=== PATIENT | male | born 1960 | race Caucasian/White ===

== ENCOUNTER 2017-05-10 21:40 | Inpatient (IN) | payer BC ==
[2017-05-10 21:45] VITALS: BMI 32.5
[2017-05-10 22:40] LABS: BASOPHIL 0.3 % (0-2.0); EOSINOPHIL 0.2 % (0-4.5); MCH 30.5 pg (25.7-33.7); MCHC 34.1 g/dl (32.0-35.9); MEAN CELL VOLUME 89.6 fl (80-96); MEAN PLT VOLUME 6.9 fl (7.5-11.1); NEUTROPHILS 70.7 % (42.8-82.8); PLATELET COUNT 219 K/MM3 (134-434); RDW 14.2 % (11.9-15.9); WHITE BLOOD COUNT 9.2 K/mm3 (4.0-10.0)
[2017-05-10 23:02] LABS: ALBUMIN 4.2 g/dl (3.4-5.0); CALCIUM 8.8 mg/dL (8.5-10.1); CREATININE 1.6 mg/dL (0.7-1.3)
[2017-05-10 23:03] LABS: BILIRUBIN,TOTAL 0.8 mg/dL (0.2-1.0)
[2017-05-10] MEDS ORDERED: SODIUM CHLORIDE 1,000 ML IV STA (23:26)
[2017-05-10] MEDS ORDERED: ONDANSETRON 4 MG/2 ML VIAL IVPB ONE (23:26)
[2017-05-10] MEDS ORDERED: ONDANSETRON 4 MG/2 ML VIAL ONE (23:33)
[2017-05-11] MEDS ORDERED: METOCLOPRAMIDE HCL INJECTION 10 MG/2 ML VIAL ONE (00:35)
[2017-05-11] MEDS ORDERED: METOCLOPRAMIDE HCL INJECTION 10 MG/2 ML VIAL IVPB ONE (00:47)
[2017-05-11] MEDS ORDERED: LORAZEPAM CARPU-JECT 2 MG/ML DISP.SYRIN IVPUSH ONE ×2 (01:50→13:18)
[2017-05-11] MEDS ORDERED: SODIUM CHLORIDE 1,000 ML IV STA (01:51)
[2017-05-11] MEDS ORDERED: LORAZEPAM CARPU-JECT 2 MG/ML DISP.SYRIN ONE (01:57)
[2017-05-11 02:09] LABS: ARTERIAL BLD GAS O2 SATURATION 99.6 % (90-98.9); ARTERIAL BLOOD GAS HCO3 20.5 meq/L (22-26)
[2017-05-11 02:10] LABS: ALLENS TEST POSITIVE; ART PUNCT SITE RIGHT RADIAL; LPM/O2% 21%; METHEMOGLOBIN 2.4 % (0.4-1.5); PT. ON O2? NO; TYPE OF O2 ROOM AIR
--- NOTE | 2017-05-11 02:25 | PDOC ---
History of Present Illness - General Chief Complaint: Alcohol intoxication Stated Complaint: ALCOHOL INTOXICATION Time Seen by Provider: 05/10/17 21:59 History Source: Patient, Family Exam Limitations: Clinical Condition - History of Present Illness Initial Comments: 05/11/17 02:42 56yo Male patient w/ PmHx: Alcoholism, and depression presents to ED c/o nausea. Patient states he is an alcoholic and he drank 1/2 pint of Vodka around noon. He reports feeling nauseous and anxious. Patient denies CP, Abd pain, Back pain, diff breathing, fever, or any other complaints. Timing/Duration: 4-6 hours Severity: moderate Associated Symptoms: reports: nausea/vomiting. denies: denies symptoms, chest pain, cough, diaphoresis, fever/chills, headaches, loss of appetite, malaise, rash, seizure, shortness of breath, syncope, weakness, other Aspirin Received prior to arrival: No: no aspirin today, unknown, 81 mg x 1, 81 mg x 2, 81 mg x 3, 81 mg x 4, 325 mg x 1, provided at home, provided by EMS, provided by ED [facility] Contraindications(Core Measure): No: Allergy, Other, Active Blding w/i 24 hrs., Plavix, Receiving Warfarin Beta April Contraindications(Core Measure): No: Not Prescribed, Allergy, Bradycardia (HR <60bpm), Advanced Heart Block, Pacemaker, Other Beta April Given by EMS(Core Measure): No Beta April Taken at Home(Core Measure): No Beta April Not Indicated at this Time(Core Measure): No Past History - Travel Traveled outside of the country in the last 30 days: No Close contact w/someone who was outside of country & ill: No - Past Medical History Allergies/Adverse Reactions: Allergies Allergy/AdvReac Type Severity Reaction Status Date / Time No Known Allergies Allergy Verified 05/10/17 21:45 Home Medications: Ambulatory Orders Venlafaxine HCl ER [Effexor Xr -] 150 mg PO DAILY 10/26/15 Bupropion HCl [Wellbutrin Xl -] 300 mg PO DAILY #30 tab.sr.24h 10/27/15 Anemia: No Asthma: No Cancer: No Cardiac Disorders: No CVA: No COPD: No CHF: No Dementia: No Diabetes: No GI Disorders: No Disorders: No HTN: No Hypercholesterolemia: No Kidney Stones: No Liver Disease: No Suicide Attempt (Hx): No (denies) Seizures: No Thyroid Disease: No - Reproductive History Testicular Surgery: No - Psycho/Social/Smoking Cessation Hx Anxiety: Yes Suicidal Ideation: No Smoking History: Never smoked Have you smoked in the past 12 months: No If you are a former smoker, when did you quit?: 2009 Hx Alcohol Use: Yes Substance Use Type: Alcohol Hx Substance Use Treatment: No Review of Systems - Review of Systems Able to Perform ROS?: Yes Is the patient limited Iraqi proficient: No Constitutional: No: Chills, Fever Cardiac (ROS): No: Chest Pain, Lightheadedness, Palpitations, Syncope, Chest Tightness ABD/GI: Yes: Nausea. No: Diarrhea, Poor Appetite, Poor Fluid Intake, Vomiting, Abdominal cramping : No: Burning, Dysuria, Hematuria, Urgency Musculoskeletal: No: Back Pain Integumentary: Yes: Sweating. No: Bruising, Dryness, Erythema, Rash Neurological: No: Headache, Seizure Psychiatric: Yes: Anxiety All Other Systems: Reviewed and Negative *Physical Exam - Vital Signs Last Vital Signs Temp Pulse Resp BP Pulse Ox 123 H 24 131/85 100 05/10/17 21:44 05/10/17 21:44 05/10/17 21:44 05/10/17 21:44 - Physical Exam General Appearance: Yes: Nourished, Appropriately Dressed, Moderate Distress. No: Apparent Distress, Mild Distress, Severe Distress Neck: positive: Trachea midline, Supple. negative: Stridor, Lymphadenopathy (R) , Lymphadenopathy (L) Respiratory/Chest: positive: Lungs Clear, Normal Breath Sounds. negative: Chest Tender, Respiratory Distress, Accessory Muscle Use, Labored Respiration, Rapid RR, Stridor, Wheezing Cardiovascular: positive: Regular Rhythm, Regular Rate Gastrointestinal/Abdominal: positive: Normal Bowel Sounds, Soft, Distended. negative: Protuberent, Guarding, Rebound, Tenderness Musculoskeletal: positive: Normal Inspection. negative: CVA Tenderness, Vertebral Tenderness Extremity: positive: Normal Capillary Refill, Normal Inspection, Normal Range of Motion. negative: Pedal Edema, Swelling, Calf Tenderness, Erythema, Inflammation Integumentary: positive: Normal Color, Dry, Warm, Diaphoresis. negative: Rash, Swelling, Bruising Neurologic: positive: pediatric geneticist II-XII NML intact, Fully Oriented, Alert, Normal Mood/ Affect, Normal Response, Motor Strength 5/5 Heart Score/ECG Review - ECG Impressions Normal ECG: No Non-specific ST Elevation: No Ischemic Changes: No Bradycardia: No Tachycardia: Sinus Torsades van Pointes: No WPW: No ED Treatment Course - LABORATORY CBC & Chemistry Diagram: 05/10/17 22:24 05/10/17 22:24 - ADDITIONAL ORDERS Additional order review: Laboratory Results 05/11/17 05/10/17 05/10/17 02:00 22:24 22:24 Puncture Site Right radial ABG pH 7.60 H ABG pCO2 at Pt Temp 20.6 L ABG pO2 at Pt Temp 122.0 H ABG HCO3 20.5 L ABG O2 Sat (Measured) 99.6 H* ABG O2 Content 19.8 ABG Base Excess 1.0 Kg Test Positive Carboxyhemoglobin 2.4 H Methemoglobin 2.4 H O2 Delivery Device Room air Oxygen Flow Rate 21% Sodium 143 Potassium 3.7 Chloride 103 Carbon Dioxide 25 Anion Gap 15 BUN 16 D Creatinine 1.6 H D Creat Clearance w eGFR 44.78 Random Glucose 140 H Calcium 8.8 Total Bilirubin 0.8 D AST 32 D ALT 33 Alkaline Phosphatase 64 Total Protein 7.0 Albumin 4.2 Alcohol, Quantitative < 5.0 05/10/17 22:24 RBC 4.84 MCV 89.6 MCHC 34.1 RDW 14.2 MPV 6.9 L D Neutrophils % 70.7 Lymphocytes % 20.2 Monocytes % 8.6 Eosinophils % 0.2 Basophils % 0.3 - RADIOLOGY Radiology Studies Ordered: Category Date Time Status CHEST X-RAY PORTABLE* [RAD] Stat Radiology 05/11/17 01:50 Taken - Medications Given in the ED: ED Medications Discontinued Medications Generic Name Dose Route Start Last Admin Trade Name Freq PRN Reason Stop Dose Admin Diphenhydramine HCl 12.5 mg 05/11/17 01:50 05/11/17 02:11 Benadryl Injection - IVPUSH 05/11/17 01:51 12.5 mg ONCE ONE Administration Sodium Chloride 1,000 mls @ 1,000 mls/hr 05/10/17 23:26 05/10/17 23:45 Normal Saline - IV 05/11/17 00:25 1,000 mls/hr ASDIR STA Administration Lorazepam 0.5 mg 05/11/17 01:50 05/11/17 02:11 Ativan Injection - IVPUSH 05/11/17 01:51 0.5 mg ONCE ONE Administration Metoclopramide HCl 10 mg 05/11/17 00:47 05/11/17 00:49 Reglan Injection - IVPB 05/11/17 00:48 10 mg ONCE ONE Administration Ondansetron HCl 8 mg 05/10/17 23:26 05/10/17 23:45 Zofran Injection IVPB 05/10/17 23:27 8 mg ONCE ONE Administration Medical Decision Making - Medical Decision Making 05/11/17 02:44 Patient now reports he drank rubbing alcohol. Poison control contacted: Serum Acetone, EKG, ABG, D5 1/2 NS, Banana Bag, Chest X-ray, CPK, Trop ordered. 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
[2017-05-11] MEDS ORDERED: DEXTROSE 5%-0.45% SALINE 1,000 ML IV SCH (02:45)
[2017-05-11 02:55] LABS: TROPONIN I < 0.02 ng/ml (0.00-0.05)
--- NOTE | 2017-05-11 03:02 | PN ---
<CristopherMarlena pryor - Last Filed: 05/11/17 03:02> Teaching Attending Note Name of Resident: Beau Sierra ATTENDING PHYSICIAN STATEMENT I saw and evaluated the patient. I reviewed the resident's note and discussed the case with the resident. I agree with the resident's findings and plan as documented. SUBJECTIVE: OBJECTIVE: ASSESSMENT AND PLAN: <Sherry Mclain - Last Filed: 05/11/17 04:02> Teaching Attending Note ATTENDING PHYSICIAN STATEMENT I saw and evaluated the patient. I reviewed the resident's note and discussed the case with the resident. I agree with the resident's findings and plan as documented. SUBJECTIVE: 56 year old male with a pmhx of alcoholism and depression who presents with nausea. Patient drank 1/2 pint of rubbing alcohol today. He notes that he stopped drinking 2 years ago and is currently in AA, but had a relapse 8 days ago. He reports 2 episodes of vomiting, nonbloody. OBJECTIVE: VS: Last Vital Signs Temp Pulse Resp BP Pulse Ox 100 H 10 L 158/100 99 05/11/17 02:47 05/11/17 02:47 05/11/17 02:47 05/11/17 02:47 GEN: NAD HEENT: NCAT, PERRL CARD: RRR, S1 S2 RESP: CTAB ABD: NT, BWS x4 EXT: - CCE LABS: CBCD WBC 9.2 K/mm3 (4.0-10.0) D 05/10/17 22:24 RBC 4.84 M/mm3 (4.00-5.60) 05/10/17 22:24 Hgb 14.8 GM/dL (11.7-16.9) 05/10/17 22:24 Hct 43.4 % (35.4-49) 05/10/17 22:24 MCV 89.6 fl (80-96) 05/10/17 22:24 MCHC 34.1 g/dl (32.0-35.9) 05/10/17 22:24 RDW 14.2 % (11.9-15.9) 05/10/17 22:24 Plt Count 219 K/MM3 (134-434) 05/10/17 22:24 MPV 6.9 fl (7.5-11.1) L D 05/10/17 22:24 CMP Sodium 143 mmol/L (136-145) 05/10/17 22:24 Potassium 3.7 mmol/L (3.5-5.1) 05/10/17 22:24 Chloride 103 mmol/L (98-107) 05/10/17 22:24 Carbon Dioxide 25 mmol/L (21-32) 05/10/17 22:24 Anion Gap 15 (8-16) 05/10/17 22:24 BUN 16 mg/dL (7-18) D 05/10/17 22:24 Creatinine 1.6 mg/dL (0.7-1.3) H D 05/10/17 22:24 Creat Clearance w eGFR 44.78 (>60) 05/10/17 22:24 Calcium 8.8 mg/dL (8.5-10.1) 05/10/17 22:24 Total Bilirubin 0.8 mg/dL (0.2-1.0) D 05/10/17 22:24 AST 32 U/L (15-37) D 05/10/17 22:24 ALT 33 U/L (12-78) 05/10/17 22:24 Alkaline Phosphatase 64 U/L (45-117) 05/10/17 22:24 Total Protein 7.0 g/dl (6.4-8.2) 05/10/17 22:24 Albumin 4.2 g/dl (3.4-5.0) 05/10/17 22:24 ASSESSMENT AND PLAN: 56 year old male with a pmhx of alcohol abuse and depression presents with abdominal pain found to have mixed acid base disorder with metabolic acidosis and primary respiratory alkalosis, and acute renal failure. 1. Poisoning secondary to isopropyl alcohol - Stat osmo levels - Osmolar gap - Follow troponin/ecg - Stat serum acetone - UA - UDS follow up - IVF - No indication for urgent HD 2. Acute renal failure - Most likely due to poisoning - Urine lytes - IVF 3. Hx of alcohol abuse - Patient refused detox states that he has his own program - Banana bag - Librium - Ciwa protocol 4. Depression - Continue home meds 5. DVT ppx - Low risk - SCD[facility] Place in [facility]. Documentation prepared by Sherry Mclain, acting as medical nurse for Marlena Nicholas D.O.
[2017-05-11 03:22] LABS: URINE APPEARANCE CLEAR; URINE BILIRUBIN NEGATIVE (NEGATIVE); URINE COLOR LTYELLOW; URINE GLUCOSE (UA) 1+ (NEGATIVE); URINE KETONE 2+ (NEGATIVE); URINE LEUK ESTERASE NEGATIVE (NEGATIVE); URINE NITRITE NEGATIVE (NEGATIVE); URINE PROTEIN NEGATIVE (NEGATIVE); URINE UROBILINOGEN NEGATIVE E.U./dl (0.2-1.0)
[2017-05-11 03:35] LABS: URINE MARIJUANA THC POSITIVE ng/ml (CUTOFF=50)
[2017-05-11 03:43] LABS: URINE BLOOD 1+ (NEGATIVE)
[2017-05-11 03:45] LABS: URINE BACTERIA RARE /hpf (NONE SEEN); URINE MUCUS RARE; URINE RBC 1 /hpf (0-3); URINE WBC 1 /hpf (3-5)
--- NOTE | 2017-05-11 04:12 | HP ---
CHIEF COMPLAINT: "drank rubbing alcohol" HISTORY OF PRESENT ILLNESS: 56 y/o M with PMH of alcoholism, depression presents to the ER with c/o "i drank rubbing alcohol". Pt's son at bedside who brought pt to ER and most history received from son. Pt had stopped drinking alcohol 2 years ago and relapsed and started drinking 1 pint of vodka per day 8 days ago. This noon around 12:00 pm pt drank 1/2 pint rubbing alcohol. Pt's son was called by his step-mother (step-mother) regarding patient's condition and pt came to poultry picking machine tender his dad for the ER at approximately 9 pm. Son notes that pt was able to walk down the stairs but was not able to speak cohesively and he was extremely diaphoretic. Son states pt is much more cohesive at this time and less diaphoretic at this time. During interview pt became more cohesive and was able to answer some questions. Pt is AAOX3; he had 2 episodes of non-bloody vomiting' denies CP, SOB, dysuria, blood in urine, abd pain, fevers, chills. Pt also states he did not drink anything else or do any other drugs. Further history was difficult to obtain. Pt's son also mentioned his father was on a medication for at least several months that gave him an ill reaction if he drank until about 5 weeks ago but does not remember name. He does not know why the pt has stopped taking the medication. ER course was notable for: (1) ABG, UA, Urine for acetone, NS (2) (3) PAST MEDICAL HISTORY: alcoholism, depression. PAST SURGICAL HISTORY: not able to obtain as pt is poor historian at this time Social History: Smoking: quit 7-8 years ago Alcohol: 1 pint/day over last 8 days + 1/2 pint rubbing alcohol today Drugs: denies Family History:not able to obtain as pt is poor historian at this time Allergies No Known Allergies Allergy (Verified 05/10/17 21:45) HOME MEDICATIONS: Home Medications Medication Instructions Recorded Venlafaxine HCl ER [Effexor Xr -] 150 mg PO DAILY 10/26/15 Bupropion HCl [Wellbutrin Xl -] 300 mg PO DAILY #30 tab.sr.24h 10/27/15 REVIEW OF SYSTEMS CONSTITUTIONAL: +diaphoresis Absent: fever, chills CARDIOVASCULAR: Absent: chest pain, syncope, palpitations RESPIRATORY: Absent: cough, shortness of breath GASTROINTESTINAL: +nausea, vomiting Absent: abdominal pain GENITOURINARY: Absent: dysuria, hematuria PHYSICAL EXAMINATION Vital Signs - 24 hr 05/10/17 05/11/17 21:44 02:47 Pulse Rate 123 H Pulse Rate [ 100 H Apical] Respiratory 24 10 L Rate Blood Pressure 131/85 Blood Pressure 158/100 [Right Arm] O2 Sat by Pulse 100 99 Oximetry (%) GENERAL:Somewhat lethargic but alert to stimulation, and fully oriented, bedsheets soaked with sweat, pt not completely able to answer all questions HEAD: Normal with no signs of trauma. EYES: extraocular movements intact, sclera anicteric, conjunctiva clear. EARS, NOSE, THROAT: Ears normal, nares patent NECK: Normal range of motion, supple LUNGS: Breath sounds equal, clear to auscultation bilaterally. No wheezes, and no crackles. HEART: Tachycardic, normal S1 and S2 without murmur, rub or gallop. ABDOMEN: Soft, nontender, not distended, hyperactive bowel sounds, no guarding, no rebound, no masses. MUSCULOSKELETAL: No CVA tenderness. LOWER EXTREMITIES: 2+ pulses, warm, well-perfused. No calf tenderness. No peripheral edema. NEUROLOGICAL: Somewhat lethargic, awakens to stimulation, answers some questions but slow to give responses. PSYCHIATRIC: Cooperative. SKIN: Warm, clammy Laboratory Results - last 24 hr 05/10/17 05/10/17 05/10/17 22:24 22:24 22:24 WBC 9.2 D RBC 4.84 Hgb 14.8 Hct 43.4 MCV 89.6 MCHC 34.1 RDW 14.2 Plt Count 219 MPV 6.9 L D Neutrophils % 70.7 Lymphocytes % 20.2 Monocytes % 8.6 Eosinophils % 0.2 Basophils % 0.3 Puncture Site ABG pH ABG pCO2 at Pt Temp ABG pO2 at Pt Temp ABG HCO3 ABG O2 Sat (Measured) ABG O2 Content ABG Base Excess Kg Test Carboxyhemoglobin Methemoglobin O2 Delivery Device Oxygen Flow Rate Sodium 143 Potassium 3.7 Chloride 103 Carbon Dioxide 25 Anion Gap 15 BUN 16 D Creatinine 1.6 H D Creat Clearance w eGFR 44.78 Random Glucose 140 H Calcium 8.8 Total Bilirubin 0.8 D AST 32 D ALT 33 Alkaline Phosphatase 64 Creatine Kinase CK-MB (CK-2) CK-MB (CK-2) Rel Index Troponin I Total Protein 7.0 Albumin 4.2 Opiates Screen Methadone Screen Barbiturate Screen Phencyclidine Screen Ur Amphetamines Screen MDMA (Ecstasy) Screen Benzodiazepines Screen Cocaine Screen U Marijuana (THC) Screen Alcohol, Quantitative < 5.0 Acetone, Qual 05/11/17 05/11/17 05/11/17 01:53 01:53 02:00 WBC RBC Hgb Hct MCV MCHC RDW Plt Count MPV Neutrophils % Lymphocytes % Monocytes % Eosinophils % Basophils % Puncture Site Right radial ABG pH 7.60 H ABG pCO2 at Pt Temp 20.6 L ABG pO2 at Pt Temp 122.0 H ABG HCO3 20.5 L ABG O2 Sat (Measured) 99.6 H* ABG O2 Content 19.8 ABG Base Excess 1.0 Kg Test Positive Carboxyhemoglobin 2.4 H Methemoglobin 2.4 H O2 Delivery Device Room air Oxygen Flow Rate 21% Sodium Potassium Chloride Carbon Dioxide Anion Gap BUN Creatinine Creat Clearance w eGFR Random Glucose Calcium Total Bilirubin AST ALT Alkaline Phosphatase Creatine Kinase 325 H CK-MB (CK-2) 2.552 CK-MB (CK-2) Rel Index Cancelled Troponin I < 0.02 Total Protein Albumin Opiates Screen Methadone Screen Barbiturate Screen Phencyclidine Screen Ur Amphetamines Screen MDMA (Ecstasy) Screen Benzodiazepines Screen Cocaine Screen U Marijuana (THC) Screen Alcohol, Quantitative Acetone, Qual 05/11/17 05/11/17 02:33 02:44 WBC RBC Hgb Hct MCV MCHC RDW Plt Count MPV Neutrophils % Lymphocytes % Monocytes % Eosinophils % Basophils % Puncture Site ABG pH ABG pCO2 at Pt Temp ABG pO2 at Pt Temp ABG HCO3 ABG O2 Sat (Measured) ABG O2 Content ABG Base Excess Kg Test Carboxyhemoglobin Methemoglobin O2 Delivery Device Oxygen Flow Rate Sodium Potassium Chloride Carbon Dioxide Anion Gap BUN Creatinine Creat Clearance w eGFR Random Glucose Calcium Total Bilirubin AST ALT Alkaline Phosphatase Creatine Kinase CK-MB (CK-2) CK-MB (CK-2) Rel Index Troponin I Total Protein Albumin Opiates Screen Negative Methadone Screen Negative Barbiturate Screen Negative Phencyclidine Screen Negative Ur Amphetamines Screen Negative MDMA (Ecstasy) Screen Positive Benzodiazepines Screen Negative Cocaine Screen Negative U Marijuana (THC) Screen Positive Alcohol, Quantitative Acetone, Qual Positive moderate 2+ ASSESSMENT/PLAN: 56 y/o M with PMH of alcoholism, depression presents to the ER with c/o "I drank rubbing alcohol". Pt found to have respiratory alkalosis with metabolic acidosis. Pt to be admitted for isopropyl alcohol ingestion. -isopropyl alcohol ingestion -Supportive care, IVF - NS @ 150 ml/hr (with thiamine and folic acid) -Repeat Acetone in urine in AM -trend trops, f/u Mg -Respiratory alkalosis w/metabolic acidosis secondary to isopropyl alcohol ingestion -ABG in AM -LUCÍA -secondary to isopropyl alcohol ingestion -Cr 1.6, monitor -monitor UA, acetone in AM -Depression -c/w venlafaxine and wellbutrin once able to tolerate PO -Hx of Alcoholism -Pt does not want detox / rehab at this time -Librium PRN -DVT ppx -SCDs -FEN -NS @ 150 ml/hr -Monitor electrolytes -NPO until mental status improves -Dispo: -Admit to tele Visit type - Emergency Visit Emergency Visit: Yes Care time: The patient presented to the Emergency Department on the above date and was hospitalized for further evaluation of their emergent condition. - New Patient This patient is new to me today: Yes Date on this admission: 05/11/17 - Critical Care Critical Care patient: No
[2017-05-11] MEDS ORDERED: SODIUM CHLORIDE 1,000 ML IV SCH ×3 (04:15→17:38)
[2017-05-11 06:07] LABS: ARTERIAL BLOOD GAS BASE EXCESS 3.1 meq/l (-2-2); ARTERIAL BLOOD GAS HCO3 23.6 meq/L (22-26); ARTERIAL BLOOD GAS pH 7.59 (7.35-7.45)
[2017-05-11 06:08] LABS: ALLENS TEST POSITIVE; ART PUNCT SITE RIGHT RADIAL; LPM/O2% 3L; PT. ON O2? YES; TYPE OF O2 NASAL
[2017-05-11] MEDS ORDERED: PROMETHAZINE HCL 25 MG/1 ML VIAL IVPUSH ONE (06:08)
[2017-05-11 06:26] LABS: BASOPHIL 0.2 % (0-2.0); EOSINOPHIL 0.1 % (0-4.5); MCH 30.8 pg (25.7-33.7); MCHC 34.6 g/dl (32.0-35.9); MEAN CELL VOLUME 88.9 fl (80-96); MEAN PLT VOLUME 7.1 fl (7.5-11.1); NEUTROPHILS 71.1 % (42.8-82.8); PLATELET COUNT 200 K/MM3 (134-434); RDW 14.5 % (11.9-15.9); WHITE BLOOD COUNT 11.7 K/mm3 (4.0-10.0)
[2017-05-11 08:09] LABS: ALBUMIN 3.7 g/dl (3.4-5.0); BILIRUBIN,TOTAL 0.9 mg/dL (0.2-1.0); CALCIUM 7.6 mg/dL (8.5-10.1); CREATININE 1.6 mg/dL (0.7-1.3); MAGNESIUM 2.2 mg/dL (1.8-2.4); PHOSPHOROUS 2.7 mg/dL (2.5-4.9); TOT PROT 6.2 g/dl (6.4-8.2)
[2017-05-11] MEDS ORDERED: FOLIC ACID 1 MG TABLET (FP) PO SCH (10:00)
[2017-05-11] MEDS ORDERED: THIAMINE HCL 200 MG/2 ML VIAL IVPB SCH ×2 (10:00→22:00)
[2017-05-11] MEDS ORDERED: FOLIC ACID INJECTION - 1 MG, THIAMINE HCL 100 MG, MULTIVIT INJECTION ADULT 10 ML in SOD... IVPB ONE ×2 (10:12→10:15)
[2017-05-11] MEDS ORDERED: chlordiazePOXIDE HCL 25 MG CAPSULE PO PRN (10:17)
[2017-05-11] MEDS ORDERED: chlordiazePOXIDE HCL 25 MG CAPSULE ONE ×3 (10:45→16:22)
[2017-05-11] MEDS ORDERED: ONDANSETRON 4 MG/2 ML VIAL ONE (10:45)
[2017-05-11] MEDS: chlordiazePOXIDE HCL 25 MG CAPSULE PO SCH ×3 (10:48→22:37)
[2017-05-11] MEDS ORDERED: ONDANSETRON 4 MG/2 ML VIAL IVPUSH ONE (10:50)
[2017-05-11] MEDS ORDERED: FOLIC ACID 1 MG TABLET (FP) ONE (11:24)
[2017-05-11 12:10] LABS: URINE APPEARANCE CLEAR; URINE BILIRUBIN NEGATIVE (NEGATIVE); URINE COLOR STRAW; URINE GLUCOSE (UA) 1+ (NEGATIVE); URINE KETONE 2+ (NEGATIVE); URINE LEUK ESTERASE NEGATIVE (NEGATIVE); URINE NITRITE NEGATIVE (NEGATIVE); URINE PROTEIN NEGATIVE (NEGATIVE); URINE UROBILINOGEN NEGATIVE E.U./dl (0.2-1.0)
[2017-05-11 12:12] LABS: URINE BLOOD 1+ (NEGATIVE)
[2017-05-11 12:13] LABS: URINE RBC <1 /hpf (0-3); URINE WBC <1 /hpf (3-5)
--- NOTE | 2017-05-11 12:15 | PN ---
Physical Exam: SUBJECTIVE: Patient seen and examined at bed side this morning. Stated that he is in withdrawal, has tremors, sweating and nauseous but no vomiting. Denies chest pain, sob, cough, palpation, abdominal pain or vomiting. Bowel/Bladder habit normal. Patient states he started drinking 40 years ago, was sober on/off. Was sober for many years but started drinking 8 days ago- about 1 pint of vodka. Yesterday , he didn't have any alcohol left and drank half a liter of rubbing alcohol. Since then he developed nausea, vomiting, diaphoretic, tachycardic and son brought him to the ED. Patient says he doesn't want to go to the rehab. [facility] and will start going there more often after discharge. OBJECTIVE: Vital Signs Period Temp Pulse Resp BP Sys/Luna Pulse Ox Last 24 Hr 98-107 18-18 127-147/75-95 96-100 GENERAL: The patient is lying in bed, awake, alert, and fully oriented, in mild distress. HEAD: Normal with no signs of trauma. EYES: EOM intact, no pallor, mildly icteric. ENT: Ears normal, moist mucous membranes. NECK: Supple. LUNGS: Breath sounds equal, clear to auscultation bilaterally, no wheezes, no crackles, no accessory muscle use. HEART: Tachycardic, Regular rate and rhythm, S1, S2 without murmur, rub or gallop. ABDOMEN: Soft, nontender, nondistended, normoactive bowel sounds, no guarding, no rebound, no hepatosplenomegaly, no masses. EXTREMITIES: 2+ pulses, warm, well-perfused, no edema. NEUROLOGICAL: Flushed face with sweating, no facial droop, Ext-tremors +, Bulk/ tone normal, Power-5/5 in all extremities. Cranial nerves II through XII grossly intact. Normal speech, gait not observed. PSYCH: Anxious, normal affect. SKIN: Warm, dry, normal turgor, no rashes or lesions noted Laboratory Results - last 24 hr 05/11/17 05/11/17 05/11/17 06:00 06:00 06:35 WBC 11.7 H RBC 4.42 Hgb 13.6 Hct 39.3 MCV 88.9 MCHC 34.6 RDW 14.5 Plt Count 200 MPV 7.1 L Neutrophils % 71.1 Lymphocytes % 21.2 Monocytes % 7.4 Eosinophils % 0.1 Basophils % 0.2 Puncture Site Right radial ABG pH 7.59 H ABG pCO2 at Pt Temp 24.6 L ABG pO2 at Pt Temp 152.0 H* ABG HCO3 23.6 ABG O2 Sat (Measured) 100.0 H* ABG O2 Content 18.8 ABG Base Excess 3.1 H Kg Test Positive O2 Delivery Device Nasal Oxygen Flow Rate 3l Sodium 142 Potassium 3.3 L Chloride 107 Carbon Dioxide 24 Anion Gap 11 BUN 11 D Creatinine 1.6 H Creat Clearance w eGFR 44.78 Random Glucose 158 H Calcium 7.6 L Phosphorus 2.7 Magnesium 2.2 Total Bilirubin 0.9 AST 30 ALT 28 Alkaline Phosphatase 55 Total Protein 6.2 L Albumin 3.7 Active Medications Generic Name Dose Route Start Last Admin Trade Name Freq PRN Reason Stop Dose Admin Chlordiazepoxide HCl 50 mg 05/11/17 11:00 05/11/17 10:48 Librium - PO 05/12/17 05:01 50 mg [id number] AC Administration Chlordiazepoxide HCl 25 mg 05/12/17 11:00 Librium - PO 05/13/17 05:01 [id number] AC Chlordiazepoxide HCl 15 mg 05/13/17 11:00 Librium - PO 05/14/17 05:01 [id number] AC Chlordiazepoxide HCl 25 mg 05/11/17 10:17 Librium - PO 05/14/17 10:16 Q4H PRN WITHDRAWAL(CONT SUBST) Folic Acid 1 mg 05/11/17 10:00 05/11/17 11:21 Folic Acid - PO 1 mg DAILY AC Administration Sodium Chloride 1,000 mls @ 125 mls/hr 05/11/17 10:10 05/11/17 11:21 Normal Saline - IV 125 mls/hr ASDIR AC Administration Folic Acid 1 mg/ Thiamine HCl 1,000 mls @ 125 mls/hr 05/11/17 10:12 05/11/17 11 :21 100 mg/ Multivitamins/Minerals IVPB 05/11/17 18:11 125 mls/hr 10 ml/ Sodium Chloride ONCE ONE Administration Thiamine HCl 200 mg 05/11/17 22:00 Vitamin B1 Injection - IVPB DAILY AC ASSESSMENT/PLAN: Patient is a 56 year old Male with Past Medical History of alcoholism, depression presents to the ER with c/o "I drank rubbing alcohol". Pt found to have respiratory alkalosis with metabolic acidosis.Pt to be admitted for isopropyl alcohol ingestion. # Isopropyl alcohol ingestion / Hx of alcoholism Patient started taking alcohol 1pint of vodka x 8days, ingested rubbing alcohol 1/2 a liter yesterday, came in with nausea, vomiting, diaphoresis, tachycaria ABG showed Respiratory alkalosis with metabolic acidosis secondary to isopropyl alcohol ingestion Admitted in Tele, continuous cardiac monitoring CIWA score of 9 Was given 1 bag of Banana bag Then continue IV NS @ 150 ml/hr IV Thiamine 200mg Daily and 1mg of Folic acid daily Started on Librium protocol and librium PRN Ativan given once Doesn't want to go to rehab, says he will go to AA more often now. 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 # Substance abuse Urine toxicology positive for Ectasy and Marijuana Counseling # LUCÍA likely prerenal Creatinine 1.6, baseline creatinine 0.5 in 2015 IVF USG of kidneys and bladder Avoid nephrotoxic drugs Nephrology consult appreciated # Depression venlafaxine and wellbutrin on hold # FEN Continue IV NS @ 150 ml/hr Monitor electrolytes Regular diet-aspiration precautions # Prophylaxis For DVT: On Scds For GI: Not indicated # Code Status: Full Code # Dispo: Admitted in tele. Duration of stay unknown. Illness, Investigation and PLan of care explained to the patient. He verbalized understanding. Case seen and discussed with Dr. Guerin. Visit type - Emergency Visit Emergency Visit: Yes ED Registration Date: 05/11/17 Care time: The patient presented to the Emergency Department on the above date and was hospitalized for further evaluation of their emergent condition. - New Patient This patient is new to me today: Yes Date on this admission: 05/11/17 - Critical Care Critical Care patient: No - Discharge Referral Referred to [facility] Med [facility] No
[2017-05-11 12:24] LABS: URINE CREATININE 36.6 mg/dL (20-370)
[2017-05-11] MEDS ORDERED: POTASSIUM CHLORIDE TABS 20 MEQ TABLET.ER (FP) PO ONE (13:12)
[2017-05-11] MEDS ORDERED: POTASSIUM CHLORIDE ORAL LIQUID 20 MEQ/15 ML PO ONE (13:13)
[2017-05-11] MEDS ORDERED: LORazepam 2 MG/ML SDV VIAL ONE (13:36)
[2017-05-11] MEDS: chlordiazePOXIDE HCL 25 MG CAPSULE PO PRN ×2 (13:39→19:55)
--- NOTE | 2017-05-11 14:04 | EKG ---
Test Reason : Blood Pressure : / mmHG Vent. Rate : 115 BPM Atrial Rate : 115 BPM P-R Int : 148 ms QRS Dur : 096 ms QT Int : 342 ms P-R-T Axes : 047 -22 016 degrees QTc Int : 473 ms SINUS TACHYCARDIA SEPTAL INFARCT , AGE UNDETERMINED ABNORMAL ECG NO PREVIOUS ECGS AVAILABLE Confirmed by SYDNI NAVARRETE MD ([id number]) on 05/11/2017 2:03:52 PM Referred By: Confirmed By:SYDNI NAVARRETE MD
--- NOTE | 2017-05-11 14:36 | CONSULT ---
Consultation: REQUESTING PROVIDER: CONSULT REQUEST: We have been asked to medically evaluate this patient for ( nephro). HISTORY OF PRESENT ILLNESS: 56 y/o M with PMH of alcoholism, depression came to the ER with c/o drinking rubbing alcohol". Pt states that he was alcoholic and had had stopped drinking alcohol 2 years ago and relapsed and started drinking 1 pint of vodka per day 8 days ago. This noon around 12:00 pm yesterday pt drank a cup rubbing alcohol. During interview pt started crying and states he wants to stop drinking again. denies CP, SOB, dysuria, blood in urine, abd pain, fevers, chills. Patient was lying n bed and crying. Patient look anxious. patient states that he wants to stop drinking again. PAST MEDICAL HISTORY: alcoholism, depression. PAST SURGICAL HISTORY: not able to obtain as pt is poor historian at this time Social History: Smoking: quit 7-8 years ago REVIEW OF SYSTEMS: CONSTITUTIONAL: Absent: fever, chills, diaphoresis, generalized weakness, HEENT: Absent: rhinorrhea, nasal congestion, throat pain, visual changes CARDIOVASCULAR: Absent: chest pain, syncope, palpitations, irregular heart rate, RESPIRATORY: Absent: cough, shortness of breath, dyspnea with exertion, GASTROINTESTINAL: Absent: abdominal pain, abdominal distension, nausea, vomiting, diarrhea, GENITOURINARY: Absent: dysuria, frequency, urgency, hesitancy, hematuria, flank pain, genital pain PHYSICAL EXAMINATION Vital Signs - 24 hr 05/11/17 05/11/17 05/11/17 06:19 07:38 12:06 Pulse Rate [ 107 H 98 H 103 H Apical] Respiratory 18 18 18 Rate Blood Pressure 136/95 127/75 147/95 [Right Arm] O2 Sat by Pulse 100 96 100 Oximetry (%) GENERAL: Awake, alert, and fully oriented,crying, anxious HEAD: Normal with no signs of trauma. EARS, NOSE, THROAT: oropharynx clear without exudates. Moist mucous membranes. LUNGS: Breath sounds equal, clear to auscultation bilaterally. No wheezes, and no crackles. No accessory muscle use. HEART:s1s2 normal ABDOMEN: Soft, nontender, not distended, normoactive bowel sounds, no guarding, no rebound, no masses. UPPER EXTREMITIES: 2+ pulses, warm, well-perfused LOWER EXTREMITIES: warm, well-perfused. No calf tenderness. No peripheral edema. . Laboratory Results - last 24 hr 05/11/17 05/11/17 05/11/17 06:00 06:00 06:35 WBC 11.7 H RBC 4.42 Hgb 13.6 Hct 39.3 MCV 88.9 MCHC 34.6 RDW 14.5 Plt Count 200 MPV 7.1 L Neutrophils % 71.1 Lymphocytes % 21.2 Monocytes % 7.4 Eosinophils % 0.1 Basophils % 0.2 Puncture Site Right radial ABG pH 7.59 H ABG pCO2 at Pt Temp 24.6 L ABG pO2 at Pt Temp 152.0 H* ABG HCO3 23.6 ABG O2 Sat (Measured) 100.0 H* ABG O2 Content 18.8 ABG Base Excess 3.1 H Kg Test Positive O2 Delivery Device Nasal Oxygen Flow Rate 3l Sodium 142 Potassium 3.3 L Chloride 107 Carbon Dioxide 24 Anion Gap 11 BUN 11 D Creatinine 1.6 H Creat Clearance w eGFR 44.78 Random Glucose 158 H Calcium 7.6 L Phosphorus 2.7 Magnesium 2.2 Total Bilirubin 0.9 AST 30 ALT 28 Alkaline Phosphatase 55 Total Protein 6.2 L Albumin 3.7 Urine Color Urine Appearance Urine pH Urine Protein Urine Glucose (UA) Urine Ketones Urine Blood Urine Nitrite Urine Bilirubin Urine Urobilinogen Ur Leukocyte Esterase Urine RBC Urine WBC Ur Random Sodium Ur Random Potassium Ur Random Chloride Urine Creatinine 05/11/17 05/11/17 11:51 12:00 WBC RBC Hgb Hct MCV MCHC RDW Plt Count MPV Neutrophils % Lymphocytes % Monocytes % Eosinophils % Basophils % Puncture Site ABG pH ABG pCO2 at Pt Temp ABG pO2 at Pt Temp ABG HCO3 ABG O2 Sat (Measured) ABG O2 Content ABG Base Excess Kg Test O2 Delivery Device Oxygen Flow Rate Sodium Potassium Chloride Carbon Dioxide Anion Gap BUN Creatinine Creat Clearance w eGFR Random Glucose Calcium Phosphorus Magnesium Total Bilirubin AST ALT Alkaline Phosphatase Total Protein Albumin Urine Color Straw Urine Appearance Clear Urine pH 7.0 Urine Protein Negative Urine Glucose (UA) 1+ H Urine Ketones 2+ H Urine Blood 1+ H Urine Nitrite Negative Urine Bilirubin Negative Urine Urobilinogen Negative Ur Leukocyte Esterase Negative Urine RBC <1 Urine WBC <1 Ur Random Sodium 113 Ur Random Potassium 10.5 Ur Random Chloride 108 Urine Creatinine 36.6 Laboratory Tests 05/11/17 05/11/17 05/11/17 02:33 02:44 11:51 Urine Color Urine Appearance Urine pH Ur Specific [place] Urine Protein Urine Glucose (UA) Urine Ketones Urine Blood Urine Nitrite Urine Bilirubin Urine Urobilinogen Ur Leukocyte Esterase Urine RBC Urine WBC Ur Random Sodium 113 Ur Random Potassium 10.5 Ur Random Chloride 108 Urine Creatinine 36.6 MDMA (Ecstasy) Screen Positive U Marijuana (THC) Screen Positive Acetone, Qual Positive moderate 2+ 05/11/17 12:00 Urine Color Straw Urine Appearance Clear Urine pH 7.0 Ur Specific [place] Pending Urine Protein Negative Urine Glucose (UA) 1+ H Urine Ketones 2+ H Urine Blood 1+ H Urine Nitrite Negative Urine Bilirubin Negative Urine Urobilinogen Negative Ur Leukocyte Esterase Negative Urine RBC <1 Urine WBC <1 Ur Random Sodium Ur Random Potassium Ur Random Chloride Urine Creatinine MDMA (Ecstasy) Screen U Marijuana (THC) Screen Acetone, Qual Active Medications Generic Name Dose Route Start Last Admin Trade Name Freq PRN Reason Stop Dose Admin Chlordiazepoxide HCl 50 mg 05/11/17 11:00 05/11/17 10:48 Librium - PO 05/12/17 05:01 50 mg [id number] AC Administration Chlordiazepoxide HCl 25 mg 05/12/17 11:00 Librium - PO 05/13/17 05:01 [id number] AC Chlordiazepoxide HCl 15 mg 05/13/17 11:00 Librium - PO 05/14/17 05:01 [id number] AC Chlordiazepoxide HCl 25 mg 05/11/17 13:18 05/11/17 13:39 Librium - PO 05/14/17 10:16 25 mg Q4H PRN Administration WITHDRAWAL(CONT SUBST) Folic Acid 1 mg 05/11/17 10:00 05/11/17 11:21 Folic Acid - PO 1 mg DAILY AC Administration Sodium Chloride 1,000 mls @ 125 mls/hr 05/11/17 10:10 05/11/17 11:21 Normal Saline - IV 125 mls/hr ASDIR AC Administration Folic Acid 1 mg/ Thiamine HCl 1,000 mls @ 125 mls/hr 05/11/17 10:12 05/11/17 11 :21 100 mg/ Multivitamins/Minerals IVPB 05/11/17 18:11 125 mls/hr 10 ml/ Sodium Chloride ONCE ONE Administration Thiamine HCl 200 mg 05/11/17 22:00 Vitamin B1 Injection - IVPB DAILY AC ASSESSMENT/PLAN: -isopropyl alcohol ingestion -MOSES -Depression -h/o alcoholism -Respiratory alkalosis Plan Moses could be due to isopropyl alcohol. FeNa 3.48, Continue with IV fluid. Monitor Renal Function. Avoid nephrotoxic drugs Repeat K in evening, given 40mg po kcl. On librium protocol for alcoholism. Patient wants to quit drinking, consider AA Repeat BMP in morning. Dispo: We will continue to follow the patient. Thank you for this consultative opportunity. Visit type - Emergency Visit Emergency Visit: Yes ED Registration Date: 05/11/17 Care time: The patient presented to the Emergency Department on the above date and was hospitalized for further evaluation of their emergent condition. - New Patient This patient is new to me today: Yes Date on this admission: 05/11/17 - Critical Care Critical Care patient: No
--- NOTE | 2017-05-11 17:33 | PN ---
Teaching Attending Note Name of Resident: Zay Delgadillo (Nephrology) ATTENDING PHYSICIAN STATEMENT I saw and evaluated the patient. I reviewed the resident's note and discussed the case with the resident. I agree with the resident's findings and plan as documented. Nephrology Consult Please see consult filled out by resident. Pt is a 56 year old male with pmhx of depression and alcoholism who presents to the ER after a 7 day alcohol relapse. He has been sober for about 2 years. He started drinking 7 days ago. He then yesterday drank a cup if isopropyl alcohol. He says he was drinking a pint of vodka per day. He complains of anxiety. He denies chest pain or shortness of breath. I was called to evaluate him for elevated creatinine. He denies dysuria or hematuria. He denies history of CKD. He denies nsaid use. PMHx depression alcoholism NKDA family hx denies ROS complains of anxiety Laboratory Tests 10/27/15 05/10/17 05/10/17 05:20 22:24 22:24 WBC 9.2 D Hgb 14.8 ABG pH ABG pCO2 at Pt Temp ABG pO2 at Pt Temp ABG HCO3 ABG O2 Sat (Measured) ABG O2 Content ABG Base Excess Sodium Potassium Chloride Carbon Dioxide Anion Gap BUN Creatinine 0.9 1.6 H D Creat Clearance w eGFR Random Glucose Creatine Kinase Creatine Kinase Index Urine Color Urine Appearance Urine pH Ur Specific [place] Urine Protein Urine Glucose (UA) Urine Ketones Urine Blood Urine Nitrite Urine Bilirubin Urine Urobilinogen Ur Leukocyte Esterase Urine RBC Urine WBC MDMA (Ecstasy) Screen U Marijuana (THC) Screen Alcohol, Quantitative 05/10/17 05/11/17 05/11/17 22:24 01:53 02:44 WBC Hgb ABG pH ABG pCO2 at Pt Temp ABG pO2 at Pt Temp ABG HCO3 ABG O2 Sat (Measured) ABG O2 Content ABG Base Excess Sodium Potassium Chloride Carbon Dioxide Anion Gap BUN Creatinine Creat Clearance w eGFR Random Glucose Creatine Kinase 325 H Creatine Kinase Index 0.8 Urine Color Urine Appearance Urine pH Ur Specific [place] Urine Protein Urine Glucose (UA) Urine Ketones Urine Blood Urine Nitrite Urine Bilirubin Urine Urobilinogen Ur Leukocyte Esterase Urine RBC Urine WBC MDMA (Ecstasy) Screen Positive U Marijuana (THC) Screen Positive Alcohol, Quantitative < 5.0 05/11/17 05/11/17 05/11/17 06:00 06:00 06:35 WBC 11.7 H Hgb 13.6 ABG pH 7.59 H ABG pCO2 at Pt Temp 24.6 L ABG pO2 at Pt Temp 152.0 H* ABG HCO3 23.6 ABG O2 Sat (Measured) 100.0 H* ABG O2 Content 18.8 ABG Base Excess 3.1 H Sodium 142 Potassium 3.3 L Chloride 107 Carbon Dioxide 24 Anion Gap 11 BUN 11 D Creatinine 1.6 H Creat Clearance w eGFR 44.78 Random Glucose 158 H Creatine Kinase Creatine Kinase Index Urine Color Urine Appearance Urine pH Ur Specific [place] Urine Protein Urine Glucose (UA) Urine Ketones Urine Blood Urine Nitrite Urine Bilirubin Urine Urobilinogen Ur Leukocyte Esterase Urine RBC Urine WBC MDMA (Ecstasy) Screen U Marijuana (THC) Screen Alcohol, Quantitative 05/11/17 12:00 WBC Hgb ABG pH ABG pCO2 at Pt Temp ABG pO2 at Pt Temp ABG HCO3 ABG O2 Sat (Measured) ABG O2 Content ABG Base Excess Sodium Potassium Chloride Carbon Dioxide Anion Gap BUN Creatinine Creat Clearance w eGFR Random Glucose Creatine Kinase Creatine Kinase Index Urine Color Straw Urine Appearance Clear Urine pH 7.0 Ur Specific [place] Pending Urine Protein Negative Urine Glucose (UA) 1+ H Urine Ketones 2+ H Urine Blood 1+ H Urine Nitrite Negative Urine Bilirubin Negative Urine Urobilinogen Negative Ur Leukocyte Esterase Negative Urine RBC <1 Urine WBC <1 MDMA (Ecstasy) Screen U Marijuana (THC) Screen Alcohol, Quantitative Current Medications Generic Name Dose Route Start Last Admin Trade Name Alexeiq PRN Reason Stop Dose Admin Chlordiazepoxide HCl 50 mg 05/11/17 11:00 05/11/17 16:23 Librium - PO 05/12/17 05:01 50 mg [id number] AC Administration Chlordiazepoxide HCl 25 mg 05/12/17 11:00 Librium - PO 05/13/17 05:01 [id number] AC Chlordiazepoxide HCl 15 mg 05/13/17 11:00 Librium - PO 05/14/17 05:01 [id number] AC Chlordiazepoxide HCl 25 mg 05/11/17 13:18 05/11/17 13:39 Librium - PO 05/14/17 10:16 25 mg Q4H PRN Administration WITHDRAWAL(CONT SUBST) Folic Acid 1 mg 05/11/17 10:00 05/11/17 11:21 Folic Acid - PO 1 mg DAILY AC Administration Sodium Chloride 1,000 mls @ 125 mls/hr 05/11/17 10:10 05/11/17 11:21 Normal Saline - IV 125 mls/hr ASDIR AC Administration Folic Acid 1 mg/ Thiamine HCl 1,000 mls @ 125 mls/hr 05/11/17 10:12 05/11/17 11 :21 100 mg/ Multivitamins/Minerals IVPB 05/11/17 18:11 125 mls/hr 10 ml/ Sodium Chloride ONCE ONE Administration Thiamine HCl 200 mg 05/11/17 22:00 Vitamin B1 Injection - IVPB DAILY [facility] cxr no evidence of active lung disease cardio s1s2 reg pulm clear GI soft, obese ext neg edema skin neg rash psych anxious circ pos pulses Impression 1. etoh abuse 2. LUCÍA 3. depression 4. anxiety 5. respiratory alkalosis 6. hypokalemia 7. isopropyl alcohol ingenstion Plan - cont with fluids - replace potassium - check mag level - repeat abg in am - admit for detox - monitor lytes - will need AA on discharge - pt on librium protocol - can resume diet - check ultrasound of the kidneys and bladder - may have prolonged preren al disease causing mild atn - will follow Dr Boggs
--- NOTE | 2017-05-11 19:28 | PN ---
Teaching Attending Note Name of Resident: Juanita Jaramillo ATTENDING PHYSICIAN STATEMENT I saw and evaluated the patient. I reviewed the resident's note and discussed the case with the resident. I agree with the resident's findings and plan as documented. SUBJECTIVE: Very anxious , as per patient he was sober for a long time but he started to drink again. Stated that he started to drink again. OBJECTIVE: Vital Signs Temperature 99.6 F 05/11/17 18:54 Pulse Rate 105 H 05/11/17 18:54 Respiratory Rate 18 05/11/17 18:54 Blood Pressure 138/87 05/11/17 18:54 O2 Sat by Pulse Oximetry (%) 100 05/11/17 12:06 CBCD WBC 11.7 K/mm3 (4.0-10.0) H 05/11/17 06:00 RBC 4.42 M/mm3 (4.00-5.60) 05/11/17 06:00 Hgb 13.6 GM/dL (11.7-16.9) 05/11/17 06:00 Hct 39.3 % (35.4-49) 05/11/17 06:00 MCV 88.9 fl (80-96) 05/11/17 06:00 MCHC 34.6 g/dl (32.0-35.9) 05/11/17 06:00 RDW 14.5 % (11.9-15.9) 05/11/17 06:00 Plt Count 200 K/MM3 (134-434) 05/11/17 06:00 MPV 7.1 fl (7.5-11.1) L 05/11/17 06:00 CMP Sodium 142 mmol/L (136-145) 05/11/17 06:35 Potassium 3.3 mmol/L (3.5-5.1) L 05/11/17 06:35 Chloride 107 mmol/L (98-107) 05/11/17 06:35 Carbon Dioxide 24 mmol/L (21-32) 05/11/17 06:35 Anion Gap 11 (8-16) 05/11/17 06:35 BUN 11 mg/dL (7-18) D 05/11/17 06:35 Creatinine 1.6 mg/dL (0.7-1.3) H 05/11/17 06:35 Creat Clearance w eGFR 44.78 (>60) 05/11/17 06:35 Random Glucose 158 mg/dL (74-106) H 05/11/17 06:35 Calcium 7.6 mg/dL (8.5-10.1) L 05/11/17 06:35 Total Bilirubin 0.9 mg/dL (0.2-1.0) 05/11/17 06:35 AST 30 U/L (15-37) 05/11/17 06:35 ALT 28 U/L (12-78) 05/11/17 06:35 Alkaline Phosphatase 55 U/L (45-117) 05/11/17 06:35 Total Protein 6.2 g/dl (6.4-8.2) L 05/11/17 06:35 Albumin 3.7 g/dl (3.4-5.0) 05/11/17 06:35 CARDIAC ENZYMES Creatine Kinase 325 IU/L (39-308) H 05/11/17 01:53 Troponin I < 0.02 ng/ml (0.00-0.05) 05/11/17 01:53 Current Medications Generic Name Dose Route Start Last Admin Trade Name Freq PRN Reason Stop Dose Admin Chlordiazepoxide HCl 50 mg 05/11/17 11:00 05/11/17 16:23 Librium - PO 05/12/17 05:01 50 mg [id number] AC Administration Chlordiazepoxide HCl 25 mg 05/12/17 11:00 Librium - PO 05/13/17 05:01 [id number] AC Chlordiazepoxide HCl 15 mg 05/13/17 11:00 Librium - PO 05/14/17 05:01 [id number] AC Chlordiazepoxide HCl 25 mg 05/11/17 13:18 05/11/17 13:39 Librium - PO 05/14/17 10:16 25 mg Q4H PRN Administration WITHDRAWAL(CONT SUBST) Folic Acid 1 mg 05/11/17 10:00 05/11/17 11:21 Folic Acid - PO 1 mg DAILY AC Administration Sodium Chloride 1,000 mls @ 100 mls/hr 05/11/17 17:38 Normal Saline - IV ASDIR AC Thiamine HCl 200 mg 05/11/17 22:00 Vitamin B1 Injection - IVPB DAILY [facility] Home Medications Medication Instructions Recorded Venlafaxine HCl ER [Effexor Xr -] 150 mg PO DAILY 10/26/15 Bupropion HCl [Wellbutrin Xl -] 300 mg PO DAILY #30 tab.sr.24h 10/27/15 ASSESSMENT AND PLAN: Patient is a 56 year old Male with Past Medical History of alcoholism, depression presents to the ER with c/o "I drank rubbing alcohol". Pt found to have respiratory alkalosis with metabolic acidosis.Pt to be admitted for isopropyl alcohol ingestion. # Alcohol/Isopropyl withdrawel r/o DTs On Librium protocol, on thiamine, folic acid daily. Doesn't want to go to rehab, says he will go to AA more often now. 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 Tucker robin for consult # Substance abuse: Urine toxicology positive for Ectasy and Marijuana # ARF will continue iVF ,baseline 0.5-->1.6 today,IVF , USG of kidneys and bladder ,Nephrology consult appreciated # hx of Depression on venlafaxine and wellbutrin on hold DVT px: On Scds Code Status: Full Code
[2017-05-11] MEDS ORDERED: METOCLOPRAMIDE HCL INJECTION 10 MG/2 ML VIAL IVPB PRN (20:27)
[2017-05-11 21:00] LABS: CALCIUM 8.6 mg/dL (8.5-10.1); CREATININE 1.6 mg/dL (0.7-1.3); MAGNESIUM 2.4 mg/dL (1.8-2.4)
[2017-05-11 23:10] LABS: URINE APPEARANCE CLEAR; URINE BILIRUBIN NEGATIVE (NEGATIVE); URINE COLOR STRAW; URINE GLUCOSE (UA) NEGATIVE (NEGATIVE); URINE KETONE TRACE (NEGATIVE); URINE LEUK ESTERASE NEGATIVE (NEGATIVE); URINE NITRITE NEGATIVE (NEGATIVE); URINE PROTEIN NEGATIVE (NEGATIVE); URINE UROBILINOGEN NEGATIVE E.U./dl (0.2-1.0)
[2017-05-11 23:11] LABS: URINE BLOOD 1+ (NEGATIVE)
--- NOTE | 2017-05-11 23:11 | PN ---
Progress Note (short form) - Note Progress Note: Laboratory Tests 05/11/17 05/11/17 20:00 22:45 Sodium 143 Potassium 3.6 Chloride 108 H Carbon Dioxide 27 Anion Gap 8 BUN 9 Creatinine 1.6 H Random Glucose 100 D Magnesium 2.4 Urine Color Pending Urine Appearance Pending Urine pH Pending Ur Specific [place] Pending Urine Protein Pending Urine Glucose (UA) Pending Urine Ketones Pending Urine Blood Pending Urine Nitrite Pending Urine Bilirubin Pending Urine Urobilinogen Pending Ur Leukocyte Esterase Pending Nephrology follow up - repeat labs reviewed - potassium stable - will follow renal function Dr Boggs
[2017-05-11 23:12] LABS: URINE MUCUS RARE; URINE RBC 1 /hpf (0-3); URINE WBC <1 /hpf (3-5)
[2017-05-12] MEDS: chlordiazePOXIDE HCL 25 MG CAPSULE PO PRN ×2 (00:54→08:27)
[2017-05-12] MEDS: chlordiazePOXIDE HCL 25 MG CAPSULE PO SCH (05:05)
[2017-05-12 05:52] VITALS: BP 159/95; PULSE 100; TEMP 97.8
[2017-05-12 06:48] LABS: MCH 31.5 pg (25.7-33.7); MCHC 34.6 g/dl (32.0-35.9); MEAN CELL VOLUME 90.9 fl (80-96); MEAN PLT VOLUME 7.1 fl (7.5-11.1); PLATELET COUNT 162 K/MM3 (134-434); RDW 14.8 % (11.9-15.9); WHITE BLOOD COUNT 8.8 K/mm3 (4.0-10.0)
[2017-05-12 07:15] LABS: ALBUMIN 3.6 g/dl (3.4-5.0); ANION GAP 10 (8-16); BILIRUBIN,TOTAL 0.9 mg/dL (0.2-1.0); CALCIUM 8.5 mg/dL (8.5-10.1); CO2 26 mmol/L (21-32); COCKROFT - GAULT 97.51; CREATININE 1.2 mg/dL (0.7-1.3); GLUCOSE,RANDOM 100 mg/dL (74-106); MAGNESIUM 2.4 mg/dL (1.8-2.4); PHOSPHOROUS 2.9 mg/dL (2.5-4.9); SGOT/AST 27 U/L (15-37); SGPT/ALT 28 U/L (12-78); TOT PROT 6.5 g/dl (6.4-8.2)
[2017-05-12 07:25] LABS: ALK PHOS 55 U/L (45-117)
[2017-05-12 07:25] LABS: ARTERIAL BLD GAS O2 SATURATION 98.2 % (90-98.9); ARTERIAL BLOOD GAS BASE EXCESS 0.1 meq/l (-2-2); ARTERIAL BLOOD GAS HCO3 24.5 meq/L (22-26); ARTERIAL BLOOD GAS PO2 96.7 mmHg (80-100); ARTERIAL BLOOD GAS pH 7.39 (7.35-7.45)
[2017-05-12 07:28] LABS: ALLENS TEST POSITIVE; ART PUNCT SITE RIGHT RADIAL; PT. ON O2? NO; TYPE OF O2 ROOMAIR
[2017-05-12] MEDS ORDERED: LORAZEPAM CARPU-JECT 2 MG/ML DISP.SYRIN IVPUSH ONE (08:30)
[2017-05-12] MEDS ORDERED: PT OWN MED DRAWER 7, Y5N ONE (09:21)
--- NOTE | 2017-05-12 09:49 | PN ---
S Progress Note Note: Pt. signed out AMA before he could be seen.
[2017-05-12] MEDS ORDERED: chlordiazePOXIDE HCL 25 MG CAPSULE PO SCH (11:00)
--- NOTE | 2017-05-12 11:51 | DS ---
Physical Exam: SUBJECTIVE: Patient seen and examined OBJECTIVE: Vital Signs Period Temp Pulse Resp BP Sys/Luna Pulse Ox Last 24 Hr 97.8 F-99.6 F 96-105 18-18 138-159/87-95 96-100 PHYSICAL EXAM GENERAL: The patient is awake, alert, and fully oriented, in no acute distress. HEAD: Normal with no signs of trauma. EYES: PERRL, extraocular movements intact, sclera anicteric, conjunctiva clear. ENT: Ears normal, nares patent, oropharynx clear without exudates, moist mucous membranes. NECK: Trachea midline, full range of motion, supple. LUNGS: Breath sounds equal, clear to auscultation bilaterally, no wheezes, no crackles, no accessory muscle use. HEART: Regular rate and rhythm, S1, S2 without murmur, rub or gallop. ABDOMEN: Soft, nontender, nondistended, normoactive bowel sounds, no guarding, no rebound, no hepatosplenomegaly, no masses. EXTREMITIES: 2+ pulses, warm, well-perfused, no edema. NEUROLOGICAL: Cranial nerves II through XII grossly intact. Normal speech, gait not observed. PSYCH: Normal mood, normal affect. SKIN: Warm, dry, normal turgor, no rashes or lesions noted. LABS Laboratory Results - last 24 hr 05/11/17 05/11/17 05/11/17 11:51 12:00 20:00 WBC RBC Hgb Hct MCV MCHC RDW Plt Count MPV Puncture Site ABG pH ABG pCO2 at Pt Temp ABG pO2 at Pt Temp ABG HCO3 ABG O2 Sat (Measured) ABG O2 Content ABG Base Excess Kg Test O2 Delivery Device Oxygen Flow Rate PEEP Sodium 143 Potassium 3.6 Chloride 108 H Carbon Dioxide 27 Anion Gap 8 BUN 9 Creatinine 1.6 H Creat Clearance w eGFR Random Glucose 100 D Calcium 8.6 Phosphorus Magnesium 2.4 Total Bilirubin AST ALT Alkaline Phosphatase Total Protein Albumin Urine Color Straw Urine Appearance Clear Urine pH 7.0 Ur Specific [place] 1.015 Urine Protein Negative Urine Glucose (UA) 1+ H Urine Ketones 2+ H Urine Blood 1+ H Urine Nitrite Negative Urine Bilirubin Negative Urine Urobilinogen Negative Ur Leukocyte Esterase Negative Urine RBC <1 Urine WBC <1 Urine Mucus Ur Random Sodium 113 Ur Random Potassium 10.5 Ur Random Chloride 108 Urine Creatinine 36.6 0605/12/17 05/12/17 22:45 05:35 05:35 WBC 8.8 RBC 4.60 Hgb 14.5 Hct 41.8 MCV 90.9 MCHC 34.6 RDW 14.8 Plt Count 162 MPV 7.1 L Puncture Site ABG pH ABG pCO2 at Pt Temp ABG pO2 at Pt Temp ABG HCO3 ABG O2 Sat (Measured) ABG O2 Content ABG Base Excess Kg Test O2 Delivery Device Oxygen Flow Rate PEEP Sodium 141 Potassium 3.7 Chloride 105 Carbon Dioxide 26 Anion Gap 10 BUN 10 Creatinine 1.2 D Creat Clearance w eGFR > 60 Random Glucose 100 Calcium 8.5 Phosphorus 2.9 Magnesium 2.4 Total Bilirubin 0.9 AST 27 ALT 28 Alkaline Phosphatase 55 Total Protein 6.5 Albumin 3.6 Urine Color Straw Urine Appearance Clear Urine pH 7.0 Ur Specific [place] 1.015 Urine Protein Negative Urine Glucose (UA) Negative Urine Ketones Trace H Urine Blood 1+ H Urine Nitrite Negative Urine Bilirubin Negative Urine Urobilinogen Negative Ur Leukocyte Esterase Negative Urine RBC 1 Urine WBC <1 Urine Mucus Rare Ur Random Sodium Ur Random Potassium Ur Random Chloride Urine Creatinine 05/12/17 07:15 WBC RBC Hgb Hct MCV MCHC RDW Plt Count MPV Puncture Site Right radial ABG pH 7.39 D ABG pCO2 at Pt Temp 40.9 D ABG pO2 at Pt Temp 96.7 D ABG HCO3 24.5 ABG O2 Sat (Measured) 98.2 ABG O2 Content 19.3 ABG Base Excess 0.1 Kg Test Positive O2 Delivery Device Roomair Oxygen Flow Rate No PEEP 0.0 Sodium Potassium Chloride Carbon Dioxide Anion Gap BUN Creatinine Creat Clearance w eGFR Random Glucose Calcium Phosphorus Magnesium Total Bilirubin AST ALT Alkaline Phosphatase Total Protein Albumin Urine Color Urine Appearance Urine pH Ur Specific [place] Urine Protein Urine Glucose (UA) Urine Ketones Urine Blood Urine Nitrite Urine Bilirubin Urine Urobilinogen Ur Leukocyte Esterase Urine RBC Urine WBC Urine Mucus Ur Random Sodium Ur Random Potassium Ur Random Chloride Urine Creatinine HOSPITAL COURSE: Date of Admission:05/11/17 Date of Discharge: 05/12/17 Minutes to complete discharge: 45 Discharge Summary Reason For Visit: DIABETIC KETOACIDOSIS,TOXIC EFFECT OF RUBBING Current Active Problems Alcohol dependence with uncomplicated withdrawal (Acute) Depressive disorder (Acute) Toxic effect of rubbing alcohol (Acute) Condition: Fair - Instructions Diet, Activity, Other Instructions: Patient was placed in a cab by the nursing circus supervisor and nursing informatics clinical analyst and sent him home after he signed out AMA. Referrals: Aundrea Boggs MD [Staff Physician] - Disposition: AGAINST MEDICAL ADVICE - Home Medications Comprehensive Discharge Medication List: Ambulatory Orders Venlafaxine HCl ER [Effexor Xr -] 150 mg PO DAILY 10/26/15 Bupropion HCl [Wellbutrin Xl -] 300 mg PO DAILY #30 tab.sr.24h 10/27/15 - Discharge Referral Referred to [facility] No
--- NOTE | 2017-05-12 20:42 | PN ---
Teaching Attending Note Name of Resident: Juanita Jaramillo ATTENDING PHYSICIAN STATEMENT I saw and evaluated the patient. I reviewed the resident's note and discussed the case with the resident. I agree with the resident's findings and plan as documented. SUBJECTIVE: Patient wanted to sign against medical advice. discussed with the patient is AAOx3, nfd, Does not want to stay in the hospital. OBJECTIVE: Vital Signs Temperature 97.8 F 05/12/17 05:51 Pulse Rate 100 H 05/12/17 05:51 Respiratory Rate 18 05/12/17 05:51 Blood Pressure 159/95 05/12/17 05:51 O2 Sat by Pulse Oximetry (%) 96 05/12/17 00:44 CBCD WBC 8.8 K/mm3 (4.0-10.0) 05/12/17 05:35 RBC 4.60 M/mm3 (4.00-5.60) 05/12/17 05:35 Hgb 14.5 GM/dL (11.7-16.9) 05/12/17 05:35 Hct 41.8 % (35.4-49) 05/12/17 05:35 MCV 90.9 fl (80-96) 05/12/17 05:35 MCHC 34.6 g/dl (32.0-35.9) 05/12/17 05:35 RDW 14.8 % (11.9-15.9) 05/12/17 05:35 Plt Count 162 K/MM3 (134-434) 05/12/17 05:35 MPV 7.1 fl (7.5-11.1) L 05/12/17 05:35 CMP Sodium 141 mmol/L (136-145) 05/12/17 05:35 Potassium 3.7 mmol/L (3.5-5.1) 05/12/17 05:35 Chloride 105 mmol/L (98-107) 05/12/17 05:35 Carbon Dioxide 26 mmol/L (21-32) 05/12/17 05:35 Anion Gap 10 (8-16) 05/12/17 05:35 BUN 10 mg/dL (7-18) 05/12/17 05:35 Creatinine 1.2 mg/dL (0.7-1.3) D 05/12/17 05:35 Creat Clearance w eGFR > 60 (>60) 05/12/17 05:35 Random Glucose 100 mg/dL (74-106) 05/12/17 05:35 Calcium 8.5 mg/dL (8.5-10.1) 05/12/17 05:35 Total Bilirubin 0.9 mg/dL (0.2-1.0) 05/12/17 05:35 AST 27 U/L (15-37) 05/12/17 05:35 ALT 28 U/L (12-78) 05/12/17 05:35 Alkaline Phosphatase 55 U/L (45-117) 05/12/17 05:35 Total Protein 6.5 g/dl (6.4-8.2) 05/12/17 05:35 Albumin 3.6 g/dl (3.4-5.0) 05/12/17 05:35 CARDIAC ENZYMES Creatine Kinase 325 IU/L (39-308) H 05/11/17 01:53 Troponin I < 0.02 ng/ml (0.00-0.05) 05/11/17 01:53 Home Medications Medication Instructions Recorded Venlafaxine HCl ER [Effexor Xr -] 150 mg PO DAILY 10/26/15 Bupropion HCl [Wellbutrin Xl -] 300 mg PO DAILY #30 tab.sr.24h 10/27/15 ASSESSMENT AND PLAN: Patient is a 56 year old Male with Past Medical History of alcoholism, depression presents to the ER with c/o "I drank rubbing alcohol". Pt found to have respiratory alkalosis with metabolic acidosis.Pt to be admitted for isopropyl alcohol ingestion. # Alcohol/Isopropyl withdrawel r/o DTs On Librium protocol, on thiamine, folic acid daily. Patient did not want to continue care at the hospital wanted to sign against medical advice. Discussed with the regarding that the patient needs to be picked up, Doesn't want to go to rehab, says he will go to AA more often now. Substance abuse: Urine toxicology positive for Ectasy and Marijuana # ARF will continue iVF ,baseline 0.5-->1.6 today,IVF , USG of kidneys and bladder ,Nephrology consult appreciated # hx of Depression on venlafaxine and wellbutrin on hold DVT px: On Scds Code Status: Full Code Patient signed AMA, was sent home by A taxi as per nursing supervisor glycerin and the credit administrator
[2017-05-13] MEDS ORDERED: chlordiazePOXIDE 5 MG CAPSULE PO SCH (11:00)
== END 2017-05-12 09:42 | disposition left against medical advice (07) | DRG 918 ==
LOC: JER 21:40 → JERBED 05-11 03:10 → OBSVTOIN 05-11 04:12 → J4S 05-11 18:15
PROVIDERS: ADMIT Internal Medicine; ATTEND Internal Medicine
DX: T51.2X4A Toxic effect of 2-Propanol, undetermined, initial encounter (principal); E87.4 Mixed disorder of acid-base balance; E87.3 Alkalosis; E87.2 Acidosis; N17.9 Acute kidney failure, unspecified; E87.6 Hypokalemia; F32.9 Major depressive disorder, single episode, unspecified; R11.2 Nausea with vomiting, unspecified; F10.20 Alcohol dependence, uncomplicated; F12.10 Cannabis abuse, uncomplicated; F41.9 Anxiety disorder, unspecified; Z87.891 Personal history of nicotine dependence; Y92.89 Other specified places as the place of occurrence of the external cause
CPT/HCPCS: 36415; 36600; 71010-TC; 76775-TC; 76856-TC; 80048; 80053; 80307; 81003; 81015; 82009; 82375; 82436; 82550; 82553; 82570; 82803; 83050; 83735; 83930; 84100; 84133; 84300; 84484; 85025; 85027; 93005; 93010; 99285-25; G0378